=== PATIENT | female | born 1955 | race Caucasian/White ===

== ENCOUNTER 2021-08-05 13:59 | Emergency (ER) | payer MEDICARE ==
[~2021-08-05] VITALS: Ht 157.5 cm; Wt 86.4 kg
[2021-08-05 14:01] VITALS: TEMP 99.8
[2021-08-05 14:36] LABS: HEMATOCRIT 42.1 % (37.0-47.0); HEMOGLOBIN 13.8 g/dl (12.5-16.0); MEAN CELL VOLUME 89 fl (80.0-100.0); MEAN CORPUSCULAR HEMOGLOBIN 29 pg (27-31); MEAN CORPUSCULAR HGB CONC 33 g/dl (33.0-37.0); MEAN PLATELET VOLUME 11.1 fl (7.4-10.4); PLATELET COUNT 234 K/mm3 (130-400); RED BLOOD COUNT 4.74 M/mm3 (4.10-5.30)
[2021-08-05 14:51] LABS: ALANINE AMINOTRANSFERASE 21 U/L (0-55); ALKALINE PHOSPHATASE 79 U/L (40-150); ANION GAP 12 mmol/L (7-16); AST,SGOT 30 U/L (5-34); BILIRUBIN,TOTAL 0.4 mg/dL (0.2-1.2); BLOOD UREA NITROGEN 11 mg/dL (10-20); CALCIUM 10.1 mg/dL (8.4-10.2); CARBON DIOXIDE 25 mmol/L (23-31); CHLORIDE 106 mmol/L (98-107); GLUCOSE 126 mg/dL (70-99); POTASSIUM 4.2 mmol/L (3.5-4.5); SODIUM 143 mmol/L (136-145); TOTAL PROTEIN 7.9 gm/dL (6.2-8.1)
[2021-08-05 15:01] LABS: TROPONIN-I < 0.010 ng/mL (0.00-0.033)
[2021-08-05 15:28] LABS: BASOPHIL 1 % (0-2); EOSINOPHIL 2 % (0-4); LYMPHOCYTE 52 % (20.0-51.0); NEUTROPHILS 34 % (42.0-75.2)
[2021-08-05 15:29] LABS: PLATELET ESTIMATE NORMAL (NORMAL)
[2021-08-05] MEDS ORDERED: EPA FISH OIL1 SGL (16:35)
[2021-08-05] MEDS ORDERED: ASPIRIN E.C. 8181 MG (16:35)
[2021-08-05] MEDS ORDERED: B COMPLEX #11 TA1 (16:36)
[2021-08-05] MEDS ORDERED: VITAMIND3 5000 (16:38)
[2021-08-05] MEDS ORDERED: BALSALAZIDE DI750 MG (16:39)
[2021-08-05] MEDS ORDERED: KLONOPIN 1MG1 MG (16:42)
[2021-08-05] MEDS ORDERED: LASIX 40MG TABL40 MG (16:44)
[2021-08-05] MEDS ORDERED: IMDUR 30MG30 MG/TAB (16:45)
[2021-08-05] MEDS ORDERED: PROBACAP1 EACH (16:47)
[2021-08-05] MEDS ORDERED: GLUCOPHAGE500 MG/TAB (16:48)
[2021-08-05] MEDS ORDERED: TOPROL XL 50MG50 MG (16:49)
[2021-08-05] MEDS ORDERED: NITROSTAT0.4 MG/TAB (16:51)
[2021-08-05] MEDS ORDERED: CRESTOR5 MG (16:52)
[2021-08-05] MEDS ORDERED: PRIL40 (16:52)
[2021-08-05] MEDS ORDERED: VITAMIN D 400400 IU (16:53)
[2021-08-05] MEDS ORDERED: COREG12.5 MG PO (17:45)
[2021-08-05 19:15] VITALS: BP 132/74; PULSE 78
== END 2021-08-05 19:17 | disposition home or self-care (01) ==
LOC: COL.ER 13:59
PROVIDERS: Emergency Medicine
DX: I10 Essential (primary) hypertension (principal); F41.1 Generalized anxiety disorder; Z95.5 Presence of coronary angioplasty implant and graft
CPT/HCPCS: J0360; J2060